=== PATIENT | female | born 1985 | race Caucasian/White ===

== ENCOUNTER 2022-01-18 15:43 | Inpatient (IN) | payer OTHER ==
[~2022-01-18] VITALS: Ht 167.6 cm; Wt 63.5 kg
[2022-01-18 18:22] LABS: HEMOGLOBIN 12.9 gm/dl (12.3-15.3); RED BLOOD COUNT 4.44 M/UL (4.00-5.10); WHITE BLOOD COUNT 17.5 K/UL (4.5-11.0)
[2022-01-18 18:49] LABS: BUN/CREATININE RATIO 14 (0-10)
[2022-01-19 06:48] LABS: HEMOGLOBIN 10.5 gm/dl (12.3-15.3); RED BLOOD COUNT 3.84 M/UL (4.00-5.10); WHITE BLOOD COUNT 12.6 K/UL (4.5-11.0)
[2022-01-19 07:17] LABS: BUN/CREATININE RATIO 10 (0-10)
--- NOTE | 2022-01-19 09:36 | NUR ---
PATIENT DOWN TO OR FOR LEFT FOOT I&D AT 0845
--- NOTE | 2022-01-19 10:36 | NUR ---
PATIENT RETURNED FROM SURGERY AT 1015. ASLEEP. VS WNL. SURGICAL DRESSING NOTED TO LEFT FOOT. CDI. NO DRAINAGE NOTED AT THIS TIME. NO DISTRESS NOTED. WCTM.
[2022-01-19] MEDS ORDERED: LISINOPRIL20 MG PO (13:02)
[2022-01-19] MEDS ORDERED: IBUPROFEN200 MG PO (13:03)
[2022-01-19] MEDS ORDERED: FERROUS SULFAT325 M2 PO (17:31)
[2022-01-20 04:20] LABS: HEMOGLOBIN 11.4 gm/dl (12.3-15.3); RED BLOOD COUNT 3.94 M/UL (4.00-5.10); WHITE BLOOD COUNT 13.1 K/UL (4.5-11.0)
[2022-01-20 04:38] LABS: BUN/CREATININE RATIO 12 (0-10)
[2022-01-20] MEDS ORDERED: TYLOPHEN500 MG PO (17:52)
[2022-01-20] MEDS ORDERED: DOXYCYCLINE HY100 MG PO (17:52)
[2022-01-21 05:47] LABS: HEMOGLOBIN 11.4 gm/dl (12.3-15.3); RED BLOOD COUNT 4.01 M/UL (4.00-5.10); WHITE BLOOD COUNT 8.2 K/UL (4.5-11.0)
[2022-01-21 06:37] LABS: BUN/CREATININE RATIO 14 (0-10)
[2022-01-21] MEDS ORDERED: AMOX TR-K CLV1 EAC4 PO (08:07)
[2022-01-21] MEDS ORDERED: DOXYCYCLINE HY100 MG PO (08:09)
== END 2022-01-21 14:30 | disposition home health service (06) | DRG 572 ==
LOC: ER1 15:43 → CDU 19:17 → MED SURG 4 19:17
PROVIDERS: Emergency Medicine; Surgery; ADMIT Internal Medicine
PROC: 0JBR0ZZ Excision of Left Foot Subcutaneous Tissue and Fascia, Open Approach (ICD-10-PCS; 2022-01-19)
PROC: 0J9R0ZZ Drainage of Left Foot Subcutaneous Tissue and Fascia, Open Approach (ICD-10-PCS; principal; 2022-01-19 09:20)
DX: L02.612 Cutaneous abscess of left foot (principal); D50.9 Iron deficiency anemia, unspecified; I10 Essential (primary) hypertension; D72.829 Elevated white blood cell count, unspecified; B95.61 Methicillin susceptible Staphylococcus aureus infection as the cause of diseases classified elsewhere; F17.210 Nicotine dependence, cigarettes, uncomplicated; Z98.51 Tubal ligation status; Z79.899 Other long term (current) drug therapy; Z90.49 Acquired absence of other specified parts of digestive tract; Z90.89 Acquired absence of other organs
CPT/HCPCS: 36415; 73630; 80053; 80202; 81001; 82550; 83540; 83550; 83605; 83735; 84703; 85025; 85027; 85652; 86140; 87040; 87070; 87077; 87186; 87205; 93005; 96374; 96375; 99284; J1170; J1650; J2250; J2270; J2543; J2550; J2704; J3010; J3370; J7070